=== PATIENT | female | born 1985 | race Caucasian/White ===

== ENCOUNTER 2016-11-14 10:04 | Inpatient (IN) | payer BC, OTHER ==
[2016-11-10 11:22] VITALS: BMI 35.9
[2016-11-14] MEDS ORDERED: ceFAZolin 2 GM in SODIUM CHLORIDE 0.9% 100 ML IVPB ONE (10:20)
[2016-11-14] MEDS ORDERED: CITRIC ACID-SODIUM CITRATE 15 ML CUP PO ONE (10:20)
[2016-11-14 10:41] LABS: Basophils % (A) 0 %; CH 32.1; CHCM 34.9; Eosinophils # (A) 0.2 k/uL (0-0.7); Eosinophils % (A) 2 %; HCT 37.1 % (34.0-46.0); Luc % (Auto) 2; Lymphocytes # (A) 1.9 k/uL (1.0-4.8); Lymphocytes % (A) 14 %; MCH 32.3 pg (25.0-35.0); MCV 92.3 fL (80.0-100.0); Monocytes # (A) 0.5 k/uL (0-1.0); Monocytes % (A) 4 %; Neutrophils # (A) 10.7 k/uL (1.3-7.7); Neutrophils % (A) 79 %; RBC 4.02 m/uL (3.80-5.40); WBC 13.5 k/uL (3.8-10.6); WBC (Perox) 14.07
[2016-11-14] MEDS: LACTATED RINGERS 1,000 ML IV SCH ×3 (11:19→20:38)
[2016-11-14] MEDS ORDERED: OXYTOCIN 10 UNIT/ML 1 ML VIAL ONE (12:07)
[2016-11-14] MEDS ORDERED: MORPHINE SULFATE (PF) 0.3 MG/0.3 ML SYR ONE (12:07)
[2016-11-14] MEDS ORDERED: KETOROLAC 30 MG/ML 1 ML VIAL ONE (12:07)
--- NOTE | 2016-11-14 12:09 | P.HPOB ---
History of Present Illness H&P Date: 11/14/16 Chief Complaint: History of significant shoulder dystocia, patient here for elective cesarea This is a 31-year-old 3 para 1011 EDC 11/30/2016 at 39 and one sevenths weeks' gestation. Patient presents for primary low transverse section for history of shoulder dystocia with her prior , delivered in 2014. Current is remarkable for IUGR, please see below. Fetus is been active. She denies vaginal bleeding or fluid leakage. There have been no uterine contractions. Family history significant for heart disease insulin-dependent diabetes and gout. Social history patient is , she is a nonsmoker. She denies alcohol or drug use with the . Past surgical history is significant for D&C for miscarriage in 2013. history is significant for blood type O+, rubella status immune. IUGR is noted, estimated weight less than 7th percentile, all testing has been within normal limits. VDRL testing, hepatitis B surface antigen, HIV testing, urine culture, gonorrhea and chlamydia cultures, Pap smear all negative. One-hour Glucola elevated, 3 hour GTT within normal limits. Past medical history is essentially unremarkable. Current medications vitamins. ALLERGIES none known. On exam this is a pleasant white female, 5 foot 1 inch, 190 pounds, vital signs are stable and she is afebrile. The general physical exam is within normal limits. The chest is clear. Extremities are negative for edema. Abdomen is obviously gravid, infant is vertex to Aldo's maneuvers. Cervix is closed, posterior, long, floating presentation. Impression: 39 and one sevenths weeks intrauterine , history of previous severe shoulder dystocia, recommendation is for section. IUGR status is noted, all testing within normal limits. Plan: We will proceed with primary low transverse section. Patient has been offered the option of tubal ligation which she is declining. All questions answered, all risks and benefits of procedure reviewed in detail. Past Medical History Past Medical History: No Reported History Additional Past Medical History / Comment(s): gestional diabetes-PAST HX- NOT WITH THIS History of Any Multi-Drug Resistant Organisms: None Reported Past Surgical History: No Surgical Hx Reported Past Anesthesia/Blood Transfusion Reactions: No Reported Reaction Additional Past Anesthesia/Blood Transfusion Reaction / Comment(s): NO PRIOR SX OR ANESTHESIA Past Psychological History: Anxiety Smoking Status: Former smoker - Past Family History Father Family Medical History: No Reported History Medications and Allergies Home Medications Medication Instructions Recorded Confirmed Type Ferrous Sulfate [Feosol] 325 mg PO DAILY 11/10/16 11/14/16 History Pnv,Calcium 72/Iron/Folic Acid 1 each PO DAILY 11/10/16 11/14/16 History [ Plus Tablet] Allergies Allergy/AdvReac Type Severity Reaction Status Date / Time No Known Allergies Allergy Verified 11/10/16 11:17 Exam - Vital Signs Vital signs: Vital Signs Temp Pulse Resp BP Pulse Ox 11/14/16 10:34 111/62 11/14/16 10:17 97.2 F L 102 H 17 159/88 97 Intake and Output 11/13/16 11/14/16 11/14/16 22:59 06:59 14:59 Other: Weight 86.183 kg Patient Weight 11/15/16 06:59 Weight 86.183 kg Results Result Diagrams: 11/14/16 10:25 Abnormal Lab Results - Last 24 Hours (Table) 11/14/16 Range/Units 10:25 WBC 13.5 H (3.8-10.6) k/uL Neutrophils # 10.7 H (1.3-7.7) k/uL
[2016-11-14] MEDS ORDERED: ACETAMINOPHEN TAB 325 MG TAB PO PRN (12:56)
[2016-11-14] MEDS ORDERED: diphenhydrAMINE 50 MG/ML 1 ML VIAL IVP PRN ×2 (12:56)
[2016-11-14] MEDS ORDERED: KETOROLAC 30 MG/ML 1 ML VIAL IVP PRN (12:56)
[2016-11-14] MEDS ORDERED: ONDANSETRON 4 MG/2 ML VIAL IVP PRN (12:56)
[2016-11-14] MEDS ORDERED: diphenhydrAMINE 50 MG CAP PO PRN (12:56)
[2016-11-14] MEDS ORDERED: METOCLOPRAMIDE 5 MG/ML 2 ML VIAL IVP PRN (12:56)
[2016-11-14] MEDS ORDERED: NALOXONE 0.4 MG/ML 1 ML VIAL IV PRN ×2 (12:56→15:47)
[2016-11-14] MEDS ORDERED: diphenhydrAMINE 25 MG CAP PO PRN (12:56)
[2016-11-14] MEDS ORDERED: ZOLPIDEM 5 MG TAB PO PRN (12:56)
--- NOTE | 2016-11-14 12:56 | P.OP ---
Date of Procedure: 11/14/16 Preoperative Diagnosis: 39 and one sevenths week , IUGR, previous significant shoulder dystocia. 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 Browning. She's placed in the dorsal supine position with left lateral uterine displacement. Ahmadi catheter is placed to direct drainage. 2 g of Ancef are hung. The appropriate timeout is performed to assure proper patient and procedural identification. The abdomen is prepped and draped in the usual sterile fashion. The analgesia is checked and noted to be adequate. A low transverse skin incision is made in this is carried down through the subcutaneous tissue to the fascia. Fascia is isolated, scored and extended bilaterally with curved Christopher scissors. Peritoneum is next identified and incised, there is no bowel or bladder involvement. The bladder is low from the operative field and therefore a separate bladder flap was not created. The bladder retractor was placed over the dome of the bladder to avoid any bladder and/or ureteral injury. A low transverse uterine incision is made in this is carried down through the myometrium. Artificial amniorrhexis reveals clear fluid. The uterine incision is extended bluntly. The infant is delivered in the occiput transverse position. The oropharynx, nasopharynx, and external nares are all bulb suctioned on the abdominal wall. The patient is officially delivered of a liveborn female at 1225 hrs. The umbilical cord is doubly clamped and ligated, she is handed to waiting nurses for evaluation where scores of 9 and 9 at one and 5 minutes respectively were given. weighed 6 lbs. 5 oz. or 2850 g. The placentas delivered manually, it is inspected and noted to be intact with trivascular cord at 1226 hrs. Uterus is then externalized and inspected. This is a bicornuate uterus with the in the left horn. The internal cavity is swept clean with a sterile sponge to avoid any retained products of conception. The uterus is closed in a two-step fashion, first layer running locking, second layer imbricated for excellent reapproximation. Bilateral tubes and ovaries are inspected and noted to be normal. The abdomen is suctioned with suction on guard and the uterus is gently placed back into the abdominal cavity. Bilateral gutters are inspected and cleaned. Hemostasis is excellent. Peritoneum is allowed to close by secondary intention. Fascia is closed in a running stitch with over ligation in the midline using 0 Vicryl suture. Subcutaneous tissue is irrigated, noted to be clean and dry. It is reapproximated with 3-0 Vicryl in a running fashion. 4-0 undyed Vicryl in a subcuticular manner issues for final skin closure. Steri- Strips and Mastisol are applied to the wound. All sponge needle and enhancement counts are correct at the end of the procedure. Ahmadi is noted to be draining clear urine. Vital signs are stable upon exiting the operating room including blood pressure 117/45, pulse 82, 95% O2 saturation.
[2016-11-14] MEDS ORDERED: LACTATED RINGERS 1,000 ML IV SCH (13:00)
[2016-11-14] MEDS ORDERED: NALBUPHINE 10 MG/ML AMPUL IV PRN (15:47)
[2016-11-14] MEDS ORDERED: MORPHINE SULFATE 4 MG/ML SYRINGE IVP PRN (15:47)
[2016-11-14] MEDS: SENNOSIDES-DOCUSATE SODIUM 1 EACH TAB PO SCH (19:51)
[2016-11-15 07:20] LABS: Basophils % (A) 0 %; CH 31.6; CHCM 33.7; Eosinophils # (A) 0.1 k/uL (0-0.7); Eosinophils % (A) 1 %; HCT 35.2 % (34.0-46.0); HDW 2.42; Luc # (Auto) 0.19; Luc % (Auto) 1; Lymphocytes # (A) 1.6 k/uL (1.0-4.8); Lymphocytes % (A) 10 %; MCH 32.2 pg (25.0-35.0); MCHC 34.1 g/dL (31.0-37.0); MCV 94.5 fL (80.0-100.0); Mean Platelet Volume 7.1; Monocytes # (A) 0.6 k/uL (0-1.0); Monocytes % (A) 4 %; Neutrophils # (A) 12.9 k/uL (1.3-7.7); Neutrophils % (A) 84 %; RBC 3.72 m/uL (3.80-5.40); RDW 14.1 % (11.5-15.5); WBC 15.4 k/uL (3.8-10.6); WBC (Perox) 16.05
--- NOTE | 2016-11-15 07:28 | P.PN ---
Subjective Principal diagnosis: post op day#1 slept well. (+) flatus Objective - Vital Signs Vital signs: Vital Signs Temp 98.8 F 11/15/16 04:00 Pulse 67 11/15/16 04:00 Resp 16 11/15/16 04:00 BP 125/77 11/15/16 04:00 Pulse Ox 98 11/15/16 06:00 Intake & Output 11/14/16 11/15/16 11/15/16 18:59 06:59 18:59 Intake Total 2080 1550 Output Total 775 1450 Balance 1305 100 Weight 86.183 kg Intake: IV 1700 1000 Invasive Line 1 500 1000 Intake, IV Titration 550 Amount Lactated Ringers 1,000 ml 550 @ 125 mls/hr IV .Q8H ANAYELI Rx#:[id number] Oral 380 Blood Product 0 Output: Urine 75 1350 Uretheral (Ahmadi) 1000 Emesis 200 100 Estimated Blood Loss 500 Other: # Voids 1 - Constitutional General appearance: Present: average body habitus, cooperative - EENT Eyes: Present: PERRLA ENT: Present: hearing grossly normal - Neck Neck: Present: normal ROM - Respiratory Respiratory: bilateral: CTA - Cardiovascular Rhythm: regular - Gastrointestinal General gastrointestinal: Present: normal bowel sounds - Genitourinary Genitourinary Comment(s): uterus firm, nontender, midline, below umbilicus - Integumentary Integumentary: Present: normal - Neurologic Neurologic: Present: CNII-XII intact - Musculoskeletal Musculoskeletal: Present: gait normal - Psychiatric Psychiatric: Present: A&O x's 3, appropriate affect, intact judgment & insight - Labs CBC & Chem 7: 11/15/16 06:53 Labs: Abnormal Lab Results - Last 24 Hours (Table) 11/14/16 11/15/16 Range/Units 10:25 06:53 WBC 13.5 H 15.4 H (3.8-10.6) k/uL RBC 3.72 L (3.80-5.40) m/uL Neutrophils # 10.7 H 12.9 H (1.3-7.7) k/uL Assessment and Plan Plan: continue post op care. Likely discharge home tomorrow Time with Patient: Less than 30
[2016-11-15] MEDS: SENNOSIDES-DOCUSATE SODIUM 1 EACH TAB PO SCH ×2 (09:31→20:18)
[2016-11-15] MEDS: Acetaminophen-Codeine 300-30mg TAB PO PRN ×2 (09:31→20:17)
[2016-11-15] MEDS: IBUPROFEN 600 MG TAB PO PRN ×2 (15:22→23:09)
[2016-11-15] MEDS: LACTATED RINGERS 1,000 ML IV SCH (20:18)
[2016-11-16] MEDS: Acetaminophen-Codeine 300-30mg TAB PO PRN ×2 (02:06→08:52)
[2016-11-16] MEDS: IBUPROFEN 600 MG TAB PO PRN (04:59)
--- NOTE | 2016-11-16 08:22 | P.DS ---
Providers Date of admission: 11/14/16 10:04 Expected date of discharge: 11/16/16 Attending physician: Taylor Cleveland Primary care physician: Stated None Hospital Course: This is a a 31-year-old white female 3 para 111 EDC 11/20/2016 at 39 and one sevenths weeks' gestation. Patient presented for primary low transverse section for a history of severe shoulder dystocia with her prior delivery. was essentially unremarkable, group B strep cultures negative, blood type O+, rubella status immune. was difficult can't for intrauterine growth restriction, testing performed and all tests reassuring. Please see my dictated history and physical for details. Patient was admitted and primary low transverse section was performed. She gave to a liveborn female , scores 9 and 9 at one and 5 minutes respectively. weighed 2858 g or 6 lbs. 5 oz. The surgery was unremarkable with an estimated blood loss of 500 mL's. A bicornuate uterus was noted, in the left horn of the uterus. Please see my dictated operative note for details. This morning the patient is doing well. She is voiding, ambulating and passing flatus without difficulty. Vital signs are stable and she has remained afebrile. Incision appears well approximated, clean and dry, Steri-Strips applied. Breasts are not engorged. Pain is well controlled with ibuprofen products. Fundus is firm and in the midline, symmetric, nontender, 18 week size. Patient is being discharged home in very good condition this morning. She will follow-up in the office with me in 2 weeks for incision check. I have reminded her no intercourse, tampons or douching. She will use [id number] ibuprofen products, 200 mg pills, 3 every 6 hours as needed for pain. She will continue taking her vitamin daily. I have reminded her no driving, no heavy lifting for 2 weeks. She will call with any fevers shakes or chills, foul smelling or copious lochia, with any pain not alleviated by over-the- counter products, with any concerns breast-feeding, or indeed with any problems or issues. I will see her in the office in 2 weeks for incision check. Patient Condition at Discharge: Good Plan - Discharge Summary New Discharge Prescriptions: No Action Ferrous Sulfate [Feosol] 325 mg PO DAILY Pnv,Calcium 72/Iron/Folic Acid [ Plus Tablet] 1 each PO DAILY Discharge Medication List Ferrous Sulfate [Feosol] 325 mg PO DAILY 11/10/16 [History] Pnv,Calcium 72/Iron/Folic Acid [ Plus Tablet] 1 each PO DAILY 11/10/16 [ History] Follow up Appointment(s)/Referral(s): Taylor Cleveland MD [STAFF PHYSICIAN] - 2 Weeks Discharge Disposition: HOME SELF-CARE
[2016-11-16] MEDS: SENNOSIDES-DOCUSATE SODIUM 1 EACH TAB PO SCH (08:53)
[2016-11-16 09:06] VITALS: BP 121/59; PULSE 86; RESP 18; TEMP 99
== END 2016-11-16 13:00 | disposition home or self-care (01) | DRG 766 ==
LOC: 4FBP 10:04
PROVIDERS: ADMIT Obstetrics & Gynecology; ATTEND Obstetrics & Gynecology
PROC: 10907ZC Drainage of Amniotic Fluid, Therapeutic from Products of Conception, Via Natural or Artificial Opening (ICD-10-PCS; 2016-11-14)
PROC: 3E0S3NZ Introduction of Analgesics, Hypnotics, Sedatives into Epidural Space, Percutaneous Approach (ICD-10-PCS; 2016-11-14)
PROC: 10D00Z1 Extraction of Products of Conception, Low, Open Approach (ICD-10-PCS; principal; 2016-11-14 12:22)
DX: O36.5930 Maternal care for other known or suspected poor fetal growth, third trimester, not applicable or unspecified (principal); F41.9 Anxiety disorder, unspecified; O34.593 Maternal care for other abnormalities of gravid uterus, third trimester; O34.03 Maternal care for unspecified congenital malformation of uterus, third trimester; Q51.3 Bicornate uterus; O99.344 Other mental disorders complicating childbirth; Z3A.39 39 weeks gestation of pregnancy; Z37.0 Single live birth; Z79.899 Other long term (current) drug therapy; Z82.49 Family history of ischemic heart disease and other diseases of the circulatory system; Z83.3 Family history of diabetes mellitus; Z87.891 Personal history of nicotine dependence; Z86.32 Personal history of gestational diabetes
CPT/HCPCS: 85025; 86850; 86900; 86901; 88307

== ENCOUNTER → 2020-06-15 | Outpatient (CLI) | payer BC, OTHER ==
[2020-06-15 13:32] LABS: HCT 34.1 % (34.0-46.0); HGB 11.7 gm/dL (11.4-16.0); MCHC 34.4 g/dL (31.0-37.0); MCV 92.9 fL (80.0-100.0); Mean Platelet Volume 7.2; Platelet Count 327 k/uL (150-450); RBC 3.67 m/uL (3.80-5.40); RDW 13.3 % (11.5-15.5); WBC 10.8 k/uL (3.8-10.6)
[2020-06-15 14:29] LABS: Uric Acid 6.4 mg/dL (3.7-7.4)
[2020-06-15 19:32] LABS: Creatinine 24 Hour,Urine 1382.6 mg/24hr (800.0-1800.0)
[2020-06-15 22:28] LABS: Total Volume 24 Hour,Urine 1550 mL
[2020-06-15 23:21] LABS: Total Protein 24 Hour,Urine 458.8 mg/24Hr
== END | disposition home or self-care (01) ==
LOC: LABWHC1 12:38
PROVIDERS: ATTEND Obstetrics & Gynecology
DX: O12.10 Gestational proteinuria, unspecified trimester (principal)
CPT/HCPCS: 36415; 81050; 82575; 84156; 84450; 84460; 84550; 85027

== ENCOUNTER 2020-06-17 15:10 | Outpatient (CLI) | payer BC, OTHER ==
[2020-06-17] MEDS ORDERED: BETAMET ACET-BETAMETH SOD PHOS 6 MG/ML MDV IM SCH (15:15)
== END 2020-06-17 15:25 | disposition home or self-care (01) ==
LOC: FBPOP 15:10
PROVIDERS: ATTEND Obstetrics & Gynecology
DX: O14.90 Unspecified pre-eclampsia, unspecified trimester (principal)
CPT/HCPCS: 96372; J0702; 99213

== ENCOUNTER 2020-06-18 15:13 | Outpatient (CLI) | payer BC, OTHER ==
[2020-06-18] MEDS ORDERED: BETAMET ACET-BETAMETH SOD PHOS 6 MG/ML MDV IM SCH (15:30)
--- NOTE | 2020-06-30 18:41 | P.MSEPDOC ---
Presenting Problems - Arrival Data Date of Arrival on Unit: 06/18/20 Time of Arrival on Unit: 15:15 Mode of Transport: Ambulatory - Complaint OB-Reason for Admission/Chief Complaint: Other Comment: Second celestone, no NST or VS needed. Medical History - Information : 3 Para: 2 Term: 1 : 1 Abortions: Spontaneous or Elective: 0 Number of Living Children: 2 - Gestational Age Gestational Age by DANA (wks/days): 33 Weeks and 1 Days Review of Systems - Review of Systems Constitutional: No problems Breast: No problems ENT: No problems Cardiovascular: No problems Respiratory: No problems Gastrointestinal: No problems Genitourinary: No problems Musculoskeletal: No problems Neurological: No problems Skin: No problems Medical Screen Scoring (Pre) - Cervical Exam Dilation: Exam Deferred Effacement: Exam Deferred Membranes: Intact - Total Score - Baby A Total Score - Baby A: 0 - Total Score - Baby B Total Score - Baby B: 0 - Total Score - Baby C Total Score - Baby C: 0 - Level of Risk - Baby A Level of Risk - Baby A: Low (0-5) - Level of Risk - Baby B Level of Risk - Baby B: Low (0-5) - Level of Risk - Baby C Level of Risk - Baby C: Low (0-5) Physician Notification (Pre) - Physician Notified Physician Notified Date: 06/18/20 Physician Notified Time: 15:15 New Order Received: Yes - Notification Comment Comment: Written instructions, second celestone. No NST or VS needed. Pt to follow up at next scheduled appt. Disposition - Disposition OB Disposition: Discharge to home, Written follow up instructions reviewed Discharge Date: 06/18/20 Discharge Time: 15:20 I agree with the RN Medical Screening Exam: Yes Case reviewed; plan agreed upon as documented in EMR&OBIX.: Yes Diagnosis: third trimester
== END 2020-06-18 15:20 | disposition home or self-care (01) ==
LOC: FBPOP 15:13
PROVIDERS: ATTEND Obstetrics & Gynecology
DX: Z36.9 Encounter for antenatal screening, unspecified (principal); Z3A.33 33 weeks gestation of pregnancy
CPT/HCPCS: 96372; J0702

== ENCOUNTER 2020-07-14 07:55 | Inpatient (IN) | payer BC, OTHER ==
[2020-07-08 13:57] VITALS: BMI 34.0
[2020-07-14] MEDS ORDERED: CITRIC ACID-SODIUM CITRATE 15 ML CUP PO ONE (08:34)
[2020-07-14] MEDS ORDERED: LACTATED RINGERS 1,000 ML IV ONE (08:34)
--- NOTE | 2020-07-14 08:49 | P.HPOB ---
History of Present Illness H&P Date: 07/14/20 Chief Complaint: Preeclampsia This is a 34 year old 4 para 1112 woman with an estimated due date of 08/04/2020 based on first trimester ultrasound. She is being admitted at 37 weeks gestation for repeat low transverse section secondary to preeclampsia. Patient has elevated urine protein based on 24 hour urine protein collection at 33 weeks gestation. This is in the setting of mildly elevated blood pressures ranging from the 130s to 140s over 80s to 90s. Baseline 24-hour urine protein done at the beginning of was 240 mg per 24 hours, repeat testing at 33 weeks revealed increased to 458 mg per 24 hours. She has been off of work and monitoring home blood pressures. She has lower extremity swelling however otherwise has remained asymptomatic. has also been complicated by gestational diabetes diet controlled, tobacco use, advanced maternal age, history of arcuate shaped uterus and history of previous low transverse section. Obstetric history: 2013 first trimester spontaneous miscarriage. 2014 32 week delivery complicated by shoulder dystocia, infant weighing 4 lbs. 3 oz. 20 1739 week primary low transverse section secondary to history of shoulder dystocia. complicated by IUGR and preeclampsia. Laboratory data: Blood type O+, antibody screen negative, rubella immune, VDRL nonreactive, hepatitis B surface antigen negative, HIV negative, gonorrhea and clinic cultures negative, glucose tolerance testing abnormal, group B strep negative. Baseline uric acid 4.8, AST 17, ALTs 15. Repeat testing at 33 weeks uric acid is 6.4, AST 29, ALTs 28. 24-hour urine proteins as described above. Review of Systems All systems: negative Past Medical History Past Medical History: No Reported History Additional Past Medical History / Comment(s): gestional diabetes currently during this History of Any Multi-Drug Resistant Organisms: None Reported Past Surgical History: Section Past Anesthesia/Blood Transfusion Reactions: No Reported Reaction Additional Past Anesthesia/Blood Transfusion Reaction / Comment(s): NO PRIOR SX OR ANESTHESIA Smoking Status: Current every day smoker - Past Family History Father Family Medical History: No Reported History Medications and Allergies Home Medications Medication Instructions Recorded Confirmed Type Pnv,Calcium 72/Iron/Folic Acid 1 each PO DAILY 11/10/16 07/08/20 History [ Plus Tablet] Ferrous Sulfate. 65 mg PO DAILY 07/08/20 History Allergies Allergy/AdvReac Type Severity Reaction Status Date / Time No Known Allergies Allergy Verified 07/08/20 13:51 Exam Examination setting reveals a pleasant female who is visibly gravid. HEENT exam unremarkable. Breathing is unlabored and the heart is a regular rate and rhythm. The abdomen is gravid, soft with no right upper quadrant pain. Cervical examination is deferred. Extremities show 1+ bilateral lower extremity edema with 2+ deep tendon reflexes, no clonus. Assessment and Plan (1) 37 weeks gestation of Current Visit: Yes Status: Acute Code(s): Z3A.37 - 37 WEEKS GESTATION OF SNOMED Code(s): 27493205 (2) Preeclampsia Current Visit: Yes Status: Acute Code(s): O14.90 - UNSPECIFIED PRE- ECLAMPSIA, UNSPECIFIED TRIMESTER SNOMED Code(s): 960680557 (3) Gestational diabetes Current Visit: Yes Status: Acute Code(s): O24.419 - GESTATIONAL DIABETES MELLITUS IN , UNSP CONTROL SNOMED Code(s): 69548728 (4) History of delivery Current Visit: Yes Status: Acute Code(s): Z98.891 - HISTORY OF UTERINE SCAR FROM PREVIOUS SURGERY SNOMED Code(s): 889996094 (5) Advanced maternal age (AMA) in Current Visit: Yes Status: Acute Code(s): ZNM0492 - SNOMED Code(s): 401195332 (6) Tobacco use Current Visit: Yes Status: Acute Code(s): Z72.0 - TOBACCO USE SNOMED Code(s): 492415096 (7) Arcuate uterus Current Visit: Yes Status: Acute Code(s): Q51.810 - ARCUATE UTERUS SNOMED Code(s): 31483185 Plan: This is a 34 year old 4 para 1112 woman whose admitted at 37 weeks gestation for repeat low transverse section secondary to history of preeclampsia developed at 33 weeks gestation. She also has a history of gestational diabetes, tobacco use, uterine anomaly. Risks benefits and alternatives to delivery at 37 weeks of been discussed at length with the patient in the office setting. Based on her early development of preeclampsia and risk for developing severe preeclampsia with advancing gestational age secondary to previous complicated by preeclampsia, advanced maternal age, gestational diabetes etc. the decision was made to deliver at 37 weeks gestation. Risks of repeat section have been reviewed and include bleeding, transfusion, infection, maternal or injury. Consent has been obtained. Labs will be repeated on admission. status reassuring based on testing in the outpatient setting. She is Rh+ and group B strep negative.
[2020-07-14 09:31] LABS: Basophils % (A) 0 %; Eosinophils # (A) 0.1 k/uL (0-0.7); Eosinophils % (A) 1 %; HCT 37.7 % (34.0-46.0); HGB 12.5 gm/dL (11.4-16.0); Lymphocytes # (A) 2.4 k/uL (1.0-4.8); Lymphocytes % (A) 22 %; MCH 30.3 pg (25.0-35.0); MCHC 33.2 g/dL (31.0-37.0); MCV 91.3 fL (80.0-100.0); Mean Platelet Volume 7.7; Monocytes # (A) 0.5 k/uL (0-1.0); Monocytes % (A) 4 %; Neutrophils # (A) 7.9 k/uL (1.3-7.7); Neutrophils % (A) 72 %; Platelet Count 303 k/uL (150-450); RBC 4.13 m/uL (3.80-5.40)
[2020-07-14 09:42] LABS: ALT 48 U/L (4-34); AST 36 U/L (14-36); African American GFR (CKD) >90 (>60 ml/min/1.73 sqM); Blood Urea Nitrogen 10 mg/dL (7-17); LDH 421 U/L (313-618); Non-African American GFR(CKD) 82 (>60 ml/min/1.73 sqM); Uric Acid 7.5 mg/dL (3.7-7.4)
[2020-07-14] MEDS: LACTATED RINGERS 1,000 ML IV SCH ×4 (09:43→20:14)
[2020-07-14 09:46] LABS: INR 0.8 (<1.2); Partial Thromboplastin Time 26.1 sec (22.0-30.0); Prothrombin Time 9.3 sec (9.0-12.0)
[2020-07-14] MEDS ORDERED: ONDANSETRON 4 MG/2 ML VIAL IVP PRN (11:01)
[2020-07-14] MEDS ORDERED: diphenhydrAMINE 50 MG CAP PO PRN (11:01)
[2020-07-14] MEDS ORDERED: METOCLOPRAMIDE 5 MG/ML 2 ML VIAL IVP PRN (11:01)
[2020-07-14] MEDS ORDERED: diphenhydrAMINE 50 MG/ML 1 ML VIAL IVP PRN ×2 (11:01)
[2020-07-14] MEDS ORDERED: NALOXONE 0.4 MG/ML 1 ML VIAL IV PRN (11:01)
[2020-07-14] MEDS ORDERED: ACETAMINOPHEN TAB 325 MG TAB PO PRN (11:01)
[2020-07-14] MEDS ORDERED: SIMETHICONE 80 MG CHEWABLE PO PRN (11:01)
[2020-07-14] MEDS ORDERED: diphenhydrAMINE 25 MG CAP PO PRN (11:01)
[2020-07-14] MEDS ORDERED: ZOLPIDEM 5 MG TAB PO PRN (11:01)
--- NOTE | 2020-07-14 11:01 | P.OP ---
Date of Procedure: 07/14/20 Preoperative Diagnosis: Intrauterine at 37 weeks gestation Preeclampsia Advanced maternal age Gestational diabetes Arcuate uterus Maternal tobacco use Postoperative Diagnosis: Intrauterine at 37 weeks gestation Bicornuate uterus Abnormal placentation Preeclampsia Gestational diabetes Advanced maternal age Maternal tobacco use Procedure(s) Performed: Repeat low transverse section Anesthesia: spinal Surgeon: Carmella Costello Polymerization Supervisor #1: Kaitlynn Allison Estimated Blood Loss (ml): 600 IV fluids (ml): 1,000 Urine output (ml): 200 Pathology: other (placenta) Disposition: floor Indications for Procedure: 34-year-old 4 para 1112 woman with diagnosis of preeclampsia based on hypertension and proteinuria at 33 weeks gestation. She also has a history of previous low transverse section. History of arcuate shaped uterus, gestational diabetes diet controlled, maternal tobacco use. Please see history and physical for details. Operative Findings: Bicornuate uterus with in the left horn. Significant scarring of the anterior abdominal wall involving the omentum to the rectus muscles and anterior uterus. Anterior, low placenta with significant vascularity on the entire anterior aspect of the low uterine segment but predominantly on the right. Female infant in the vertex presentation with Apgars of 9 at 1 minute and 9 at 5 minutes weighing 6 lbs. 5 oz., 2860 g. Description of Procedure: After the patient was met preoperatively and all questions were answered, she was taken to the operating room where spinal anesthetic was administered without incident. She was then positioned, prepped and draped in the dorsal supine position with a leftward tilt. Ahmadi catheter was placed. After anesthetic was confirmed adequate, a low transverse skin incision was made following the pre- existing scar. This was carried down to the underlying fascia both sharply and with the electrocautery. The fascia was then incised in the midline and extended bilaterally with the Christopher scissors. The superior aspect of the fascial incision was elevated and the underlying rectus muscles dissected off sharply and with the electrocautery. The peritoneum was noted to be entered and omentum ad adherent to the rectus muscles and anterior abdominal wall. Careful dissection through the placenta to allow for visualization of the anterior uterus was undertaken. The anterior low segment of the uterus was noted to be significantly hypervascular with large predominant on the vessels over the entire low uterine segment. Careful dissection with the Metzenbaums allowed for the visualization of the bladder and the bladder to be deflected anteriorly. The bladder blade was placed. After careful inspection an area in the mid an terior uterus was noted to be free of vascularity. The infant's incision was made here. The placenta was immediately encountered. The amniotic membranes were ruptured after penetrating through the anterior placenta. Clear fluid was noted. The 's vertex was then delivered through the hysterotomy and the nose and mouth were bulb suctioned. The rest the was delivered onto the field. The nose and mouth were further bulb suctioned and the cord was clamped and cut. was taken to the warmer. The placenta was manually removed in a piecemeal fashion in the uterus was exteriorized. At this time it was obvious that the uterus was bicornuate with the in the left horn. The uterus was cleared of all clot and debris with careful attention to the anterior low uterine segment. No adherent placenta was visible. The uterine incision was delineated using Setele clamps and closed in a running locked fashion carefully with 0 Vicryl suture. The lower aspect of the incision was noted to be extremely thin as well as extremely vascular. The uterus was thin and vascular enough that it was decided not to attempt a second imbricating layer and the uterus was returned to the abdomen after hemostasis was noted. The low uterine segment was observed and the increased vascularity did not appear to be expanding were consistent with a hematoma. The uterus itself was firm. The cutters were carefully cleared of clot and debris. The left fallopian tube and ovary had adherent bowel mesentery and omentum. The omentum was carefully inspected and noted to be hemostatic afterwards dissection away from the rectus muscles. The peritoneum was then carefully closed in an interrupted fashion in the midline with 0 Vicryl suture. The rectus muscles were then inspected and noted to be hemostatic. The fascia was closed in a running fashion with 0 Vicryl suture. The subcuticular tissue was copiously suction irrigated and reapproximated with 3-0 chromic. The skin was then closed with 4-0 Vicryl suture. Dressing was applied. All counts reported to me as correct by the operating room staff.
[2020-07-14] MEDS ORDERED: OXYTOCIN 30 UNITS/500 ML NS 30 UNIT in SALINE 1 500ML.BAG IV SCH (11:15)
[2020-07-14] MEDS ORDERED: ACETAMINOPHEN IV (For NPO) 1,000 MG in EMPTY BAG 1 BAG IVPB ONE (12:00)
[2020-07-14] MEDS: SENNOSIDES-DOCUSATE SODIUM 1 EACH TAB PO SCH (20:13)
[2020-07-15] MEDS: IBUPROFEN 600 MG TAB PO PRN ×3 (00:25→15:37)
[2020-07-15] MEDS: LACTATED RINGERS 1,000 ML IV SCH ×4 (01:34→12:46)
[2020-07-15 06:16] LABS: Basophils % (A) 0 %; Eosinophils # (A) 0.1 k/uL (0-0.7); Eosinophils % (A) 1 %; HCT 23.5 % (34.0-46.0); Lymphocytes # (A) 2.1 k/uL (1.0-4.8); Lymphocytes % (A) 19 %; MCH 31.6 pg (25.0-35.0); MCHC 33.7 g/dL (31.0-37.0); MCV 93.5 fL (80.0-100.0); Mean Platelet Volume 7.9; Monocytes # (A) 0.5 k/uL (0-1.0); Monocytes % (A) 5 %; Neutrophils # (A) 8.3 k/uL (1.3-7.7); Neutrophils % (A) 75 %; Platelet Count 223 k/uL (150-450); RBC 2.52 m/uL (3.80-5.40); RDW 14.3 % (11.5-15.5); WBC 11.1 k/uL (3.8-10.6)
[2020-07-15 06:19] LABS: HGB 7.9 gm/dL (11.4-16.0)
--- NOTE | 2020-07-15 07:11 | P.PN ---
Progress Note - Text Progress Note Date: 07/15/20 Postoperative day 1 status post section under spinal anesthesia, and i ntrathecal morphine given for postoperative analgesia, patient doing well, there is no anesthesia related complications, Patient had no headache, vital signs stable , Assessment and plan= postop day 1 status post , doing well there is no anesthesia related complication.
--- NOTE | 2020-07-15 08:16 | P.PNOBGPC ---
Subjective - Subjective Principal diagnosis: Preeclampsia Interval history: Doing well overnight. Was not able to avoid initially after catheter removed and required straight cath, now voiding without difficulty. Patient reports: Reports appetite normal, Reports voiding normally, Reports pain poorly controlled, Reports ambulating normally [place]: doing well, nursing well Objective - Vital Signs Latest vital signs: Vital Signs Temp Pulse Resp BP Pulse Ox 07/15/20 04:00 98.8 F 64 16 99/62 95 07/15/20 00:00 98.6 F 62 16 100/63 98 07/14/20 20:00 97.8 F 57 L 16 111/71 100 07/14/20 17:45 97.8 F 52 L 18 118/64 99 07/14/20 12:55 97.3 F L 49 L 18 114/60 98 07/14/20 12:25 51 L 16 112/64 97 07/14/20 11:58 48 L 18 115/56 98 07/14/20 11:41 96.5 F L 52 L 18 116/72 99 07/14/20 11:28 52 L 16 114/56 98 07/14/20 11:11 61 18 115/59 98 07/14/20 10:56 96.3 F L 62 18 117/61 99 07/14/20 08:15 98.1 F 79 18 171/96 98 Intake and Output 07/14/20 07/15/20 07/15/20 22:59 06:59 14:59 Intake Total 500 Output Total 300 400 Balance 200 -400 Intake: Oral 500 Output: Urine 300 400 Straight 200 - Exam Lungs: bilateral: normal Extremities: Present: normal, edema. Absent: tenderness Abdomen: Present: normal appearance, soft, tenderness. Absent: distention Incision: Present: normal, dry, intact. Absent: erythematous Uterus: Present: normal, firm. Absent: tenderness - Labs Labs: Abnormal Lab Results - Last 24 Hours (Table) 07/14/20 07/14/20 07/15/20 Range/Units 08:45 08:45 05:55 WBC 11.0 H 11.1 H (3.8-10.6) k/uL RBC 2.52 L (3.80-5.40) m/uL Hgb 7.9 L D (11.4-16.0) gm/dL Hct 23.5 L (34.0-46.0) % Neutrophils # 7.9 H 8.3 H (1.3-7.7) k/uL Uric Acid 7.5 H (3.7-7.4) mg/dL ALT 48 H (4-34) U/L Assessment and Plan (1) 37 weeks gestation of Current Visit: Yes Status: Acute Code(s): Z3A.37 - 37 WEEKS GESTATION OF SNOMED Code(s): 37785601 (2) Preeclampsia Current Visit: Yes Status: Acute Code(s): O14.90 - UNSPECIFIED PRE- ECLAMPSIA, UNSPECIFIED TRIMESTER SNOMED Code(s): 143781950 (3) Gestational diabetes Current Visit: Yes Status: Acute Code(s): O24.419 - GESTATIONAL DIABETES MELLITUS IN , UNSP CONTROL SNOMED Code(s): 86585000 (4) History of delivery Current Visit: Yes Status: Acute Code(s): Z98.891 - HISTORY OF UTERINE SCAR FROM PREVIOUS SURGERY SNOMED Code(s): 199821065 (5) Advanced maternal age (AMA) in Current Visit: Yes Status: Acute Code(s): TOS3772 - SNOMED Code(s): 309808142 (6) Tobacco use Current Visit: Yes Status: Acute Code(s): Z72.0 - TOBACCO USE SNOMED Code(s): 875473066 (7) Bicornuate uterus Current Visit: Yes Status: Acute Code(s): Q51.3 - BICORNATE UTERUS SNOMED Code(s): 63411104 (8) Acute anemia Current Visit: Yes Status: Acute Code(s): D64.9 - ANEMIA, UNSPECIFIED SNOMED Code(s): 864613641 Plan: Postop day 1 status post repeat low transverse section. Findings at the time of surgery were reviewed in detail with the patient. In light of the significant uterine anomaly and hypervascularity of the anterior low uterine segment I cautioned strongly against future pregnancies. I do believe she is at risk for placenta previa or accreta in the future. We also reviewed findings of a bicornuate uterus. Her blood pressures have been normal overnight and she is asymptomatic. Postop hemoglobin is 7.9 and she has no active vaginal bleeding. We'll repeat tomorrow. Routine care otherwise.
[2020-07-15] MEDS: SENNOSIDES-DOCUSATE SODIUM 1 EACH TAB PO SCH ×2 (08:52→21:48)
[2020-07-15] MEDS: HYDROcodone/APAP 5-325MG 1 EACH TAB PO PRN (21:48)
[2020-07-16 00:48] VITALS: RESP 16
[2020-07-16] MEDS: IBUPROFEN 600 MG TAB PO PRN (05:46)
[2020-07-16] MEDS: HYDROcodone/APAP 5-325MG 1 EACH TAB PO PRN (08:01)
[2020-07-16 08:14] VITALS: BP 127/84; PULSE 86; TEMP 98.3
--- NOTE | 2020-07-16 08:26 | P.DS ---
Providers Date of admission: 07/14/20 07:55 Expected date of discharge: 07/16/20 Attending physician: Carmella Costello Primary care physician: Stated None - Discharge Diagnosis(es) (1) 37 weeks gestation of Current Visit: Yes Status: Acute (2) Preeclampsia Current Visit: Yes Status: Acute (3) Gestational diabetes Current Visit: Yes Status: Acute (4) History of delivery Current Visit: Yes Status: Acute (5) Advanced maternal age (AMA) in Current Visit: Yes Status: Acute (6) Tobacco use Current Visit: Yes Status: Acute (7) Bicornuate uterus Current Visit: Yes Status: Acute (8) Acute anemia Current Visit: Yes Status: Acute Hospital Course: This is a 34-year-old 4 now para 2113 woman who was admitted for repeat low transverse section at 37 weeks gestation secondary to preeclampsia which developed at 33 weeks. She is a history of a previous low transverse section. also complicated by gestational diabetes and maternal tobacco use. She had a history from previous section of arcuate shaped uterus. Findings at the time of surgery however were significant for a bicornuate uterus with the in the left horn. There was significant hypervascularity and superficial varicosities of the entire low uterine segment and add anterior placentation. Please see the operative report for details. The patient did have a liveborn female weighing 6 lbs. 4 oz. with Apgars of 9 at 1 minute and 9 at 5 minutes. Her preoperative hemoglobin was 12.5 and her postop day 1 hemoglobin was 7.9. She was significantly hypertensive upon initial admission before her section however intraoperatively and postoperatively her blood pressures have remained in the normal range. She initially had some inadequate pain control however more scheduled pain medication use was reviewed with the patient and by the morning of postoperative day #2 she was doing well alternating ibuprofen with [place] every 6-8 hours. Her incision appears well healing and she has minimal lochia. Plan is for discharge home on postoperative day 2 pending morning CBC. She will follow up in 1 week's time for blood pressure and incision check. Of note patient and the father of the baby were counseled regarding findings at the time of surgery, specifically the significant hypervascularity of the anterior low uterine segment and anterior placentation. I believe she is at significant risk secondary to her uterine anatomy and multiple sections for possible placenta accreta/percreta and bleeding complications with future pregnancies and delivery. I have recommended in no uncertain terms that she not attempt again in the future. Should she become again this would be considered a high risk and I would recommend that she deliver at a tertiary care setting. Procedures: Follow-up in 1 weeks after surgery in the office for bp check. Call the office with any concerning signs or symptoms including fever greater than 101, severe abdominal pain, heavy vaginal bleeding, signs of wound infection, increased swelling or redness of the lower extremities, signs of depression, headaches, visual changes or systolic blood pressure greater than 150 or diastolic blood pressure greater than 100. No driving for 2 weeks after surgery. No heavy lifting or vigorous activity until reevaluated in the office. No intercourse for 6 weeks after delivery. Patient Condition at Discharge: Good Plan - Discharge Summary Discharge Rx Participant: Yes New Discharge Prescriptions: No Action Pnv,Calcium 72/Iron/Folic Acid [ Plus Tablet] 1 each PO DAILY Ferrous Sulfate. 65 mg PO DAILY Discharge Medication List Pnv,Calcium 72/Iron/Folic Acid [ Plus Tablet] 1 each PO DAILY 11/10/16 [History] Ferrous Sulfate. 65 mg PO DAILY 07/08/20 [History]
[2020-07-16 10:01] LABS: HCT 24.7 % (34.0-46.0); HGB 8.4 gm/dL (11.4-16.0); MCH 32.1 pg (25.0-35.0); MCHC 34.1 g/dL (31.0-37.0); MCV 94.1 fL (80.0-100.0); Mean Platelet Volume 7.9; Platelet Count 298 k/uL (150-450); RBC 2.62 m/uL (3.80-5.40); RDW 13.8 % (11.5-15.5); WBC 11.3 k/uL (3.8-10.6)
--- NOTE | 2020-07-18 10:28 | CDI ---
Documentation Clarification Form Date: 07/18/2020 10:25:00 AM From: Graciela Maddox CCS Admit Date: 07/14/2020 07:55:00 AM Patient Name: Jenise Hedrick Visit Number: [id number] Discharge Date: 07/16/2020 10:16:00 AM ATTENTION: The Clinical Documentation Specialists (CDI) and [facility] Coding Staff appreciate your assistance in clarifying documentation. Please respond to the clarification below the line at the bottom and electronically sign. The CDI & [facility] Coding staff will review the response and follow-up if needed. Please note: Queries are made part of the Legal Health Record. If you have any questions, please contact the author of this message via ITS. Dr. Carmella Costello Acute Anemia is documented in the DS, PNs. History/Risk Factors: S/P section Clinical indicators: Acute Anemia, 600 ml EBL Hemoglobin: 12.5, 7.9, 8.4 Hematocrit: 37.7, 23.5, 24.7 Treatment: Monitor labs, Ferrous Sulfate 65 mg PO Daily (resume at home) In order to capture the severity of condition, please clarify the type of anemia and etiology if known:. Acute blood loss anemia Acute on chronic blood loss anemia Chronic blood loss anemia Iron deficiency anemia Nutritional anemia Unable to determine Other, please specify acute blood loss anemia MTDD
== END 2020-07-16 10:16 | disposition home or self-care (01) | DRG 787 ==
LOC: 4FBP 07:55
PROVIDERS: ADMIT Obstetrics & Gynecology; ATTEND Obstetrics & Gynecology
PROC: 10D00Z1 Extraction of Products of Conception, Low, Open Approach (ICD-10-PCS; principal; 2020-07-14 10:00)
DX: O14.04 Mild to moderate pre-eclampsia, complicating childbirth (principal); D62 Acute posthemorrhagic anemia; O24.420 Gestational diabetes mellitus in childbirth, diet controlled; O34.03 Maternal care for unspecified congenital malformation of uterus, third trimester; O99.334 Smoking (tobacco) complicating childbirth; F17.200 Nicotine dependence, unspecified, uncomplicated; O34.211 Maternal care for low transverse scar from previous cesarean delivery; O90.81 Anemia of the puerperium; Q51.3 Bicornate uterus; Z3A.37 37 weeks gestation of pregnancy; Z37.0 Single live birth
CPT/HCPCS: 82565; 83615; 84450; 84460; 84520; 84550; 85025; 85027; 85610; 85730; 86850; 86900; 86901; 88307